=== PATIENT | male | born 1940 | race Caucasian/White ===

== ENCOUNTER 2020-09-09 20:20 | Emergency (ER) | payer MEDICARE, OTHER ==
[~2020-09-09] VITALS: Ht 175.3 cm; Wt 86.2 kg
[~2020-09-09 20:20] MED LIST: ALLOPURINOL100 MG PO; ATORVASTATIN CA10 MG PO; CRESTOR20 MG; LISINOPRIL10 MG PO; LISINOPRIL20 MG
[2020-09-09 20:49] LABS: BASOPHILS # (AUTO) 0.1 (0.0-0.1); BASOPHILS % 0.7 % (0.0-1.0); EOSINOPHILS # (AUTO) 0.2 (0.0-0.4); EOSINOPHILS % 2.3 % (0.0-6.0); HEMATOCRIT 45.7 % (38.2-49.6); HEMOGLOBIN 15.4 g/dL (14.0-18.0); LYMPHOCYTES # (AUTO) 2.7 (1.0-3.2); LYMPHOCYTES % 33.3 % (18.0-39.1); MEAN CORPUSCULAR HEMOGLOBIN 31.4 pg (28-32); MEAN CORPUSCULAR HGB CONC 33.7 g/dL (31-35); MEAN CORPUSCULAR VOLUME 93.3 fL (81-99); MONOCYTES # (AUTO) 0.6 (0.2-0.8); MONOCYTES % 7.2 % (4.4-11.3); NEUTROPHILS # (AUTO) 4.6 (2.1-6.9); NEUTROPHILS % 56.3 % (38.7-80.0); PLATELET COUNT 177 x10e3/uL (140-360); RED CELL DISTRIBUTION WIDTH 12.9 % (11.7-14.4)
[2020-09-09 21:11] LABS: CALCIUM 9.6 mg/dL (8.4-10.2); CREATININE, SERUM 1.47 mg/dL (0.72-1.25)
[2020-09-09 21:15] LABS: CREATINE KINASE MB 2.9 ng/mL (0-5.0)
[2020-09-09 21:29] LABS: ALBUMIN 4.2 g/dL (3.5-5.0); ALBUMIN/GLOBULIN RATIO 1.4 (0.8-2.0)
[2020-09-09] MEDS ORDERED: SODIUM CHLORIDE 0.9% 1000ML 1,000 ML IV STA (21:55)
[2020-09-09] MEDS ORDERED: IOPAMIDOL 370 MG/ML 200 ML INFUS..BTL INJ ONE (22:51)
[2020-09-09] MEDS ORDERED: SODIUM CHLORIDE 0.9% 100 ML ONE (22:51)
== END 2020-09-10 02:15 | disposition other institution (70) ==
LOC: ER 20:37
DX: R27.0 Ataxia, unspecified (principal); E78.5 Hyperlipidemia, unspecified; M10.9 Gout, unspecified; E78.00 Pure hypercholesterolemia, unspecified; H54.7 Unspecified visual loss
CPT/HCPCS: 36415; 70450; 70496; 70498; 80053; 82550; 82553; 84484; 85025; 99284; J7030; J7050; Q9967